=== PATIENT | female | born 1980 | race Caucasian/White ===

== ENCOUNTER 2019-07-07 08:42 | Emergency (ER) | payer MEDICAID ==
[~2019-07-07] VITALS: Ht 152.4 cm; Wt 77.0 kg
[2019-07-07 08:49] VITALS: Ht 152.4 cm; Wt 77.0 kg
[2019-07-07 10:51] VITALS: BP 103/51; PULSE 67; RESP 20
== END 2019-07-07 10:52 | disposition home or self-care (01) ==
LOC: FTE 08:42
DX: Z32.00 Encounter for pregnancy test, result unknown (principal)
CPT/HCPCS: 36415; 76805; 81001; 84702; 85025; Z7502; 81003